=== PATIENT | male | born 1935 | race Caucasian/White ===

== ENCOUNTER → 2016-12-16 | Outpatient (CLI) | payer MEDICARE, OTHER, MEDICAID ==
[2016-12-16 17:05] LABS: ANION GAP 15.6 (10.0-19.0); BLOOD UREA NITROGEN 32 mg/dL (6-24); CALCIUM 8.6 mg/dL (8.5-10.5); CHLORIDE 101 mMol/L (96-110); CO2 25 mMol/L (22-32); ESTIMATED GFR (MDRD EQUATION) > 60; POTASSIUM 4.6 mMol/L (3.7-5.1); SODIUM 137 mMol/L (135-145)
== END | disposition disaster alternative care site (69) ==
LOC: LNHI 16:37
PROVIDERS: Internal Medicine Cardiovascular Disease
DX: I25.10 Atherosclerotic heart disease of native coronary artery without angina pectoris (principal); I10 Essential (primary) hypertension